=== PATIENT | male | born 1995 | race American Indian/Alaskan Native ===

== ENCOUNTER 2020-04-14 19:00 | Emergency (ER) | payer SELFPAY ==
[2020-04-14 20:10] VITALS: BP 118/54
[2020-04-14] MEDS ORDERED: DIPHtheria,PERTUSSIS(ACELL),TETANUS VACCINE/PF 0.5 ML VIAL IM ONE (20:16)
--- NOTE | 2020-04-14 20:19 | Emergency Department Report ---
- General Chief Complaint: Wound/Laceration Stated Complaint: FINGER LACERATION Time Seen by Provider: 04/14/20 20:16 Source: patient Mode of arrival: Ambulatory Limitations: No Limitations - History of Present Illness Initial Comments: pt is a 25 yo male who presents to the ED with c/o a laceration to the left index finger that occurred at 6 AM this morning. he states he accidentally cut it with a metal seal that goes on a truck at work. states initially was bleeding but has resolved. states he cleaned it with perioxide. he is able to move the finger. he denies any numbness or weakness. he is unsure of his last tetanus immunization. PMHx none. no allergies to meds - Related Data Allergies Allergy/AdvReac Type Severity Reaction Status Date / Time No Known Allergies Allergy Unverified 04/14/20 20:18 ED Review of Systems ROS: Stated complaint: FINGER LACERATION Other details as noted in HPI Comment: All other systems reviewed and negative ED Past Medical Hx - Past Medical History Previous Medical History?: No - Surgical History Past Surgical History?: No ED Physical Exam - General Limitations: No Limitations General appearance: alert, in no apparent distress - Head Head exam: Present: atraumatic, normocephalic - Eye Eye exam: Present: normal appearance - ENT ENT exam: Present: mucous membranes moist - Respiratory Respiratory exam: Absent: respiratory distress, accessory muscle use - Extremities Exam Extremities exam: Present: other (1 cm laceration present to the palmar surface of the distal left index finger, no bleeding, no visualized foreign body, no muscle/tendon involvement, very superificial, FROM of the left wrist, hand, digits, neurovasculalry intact) - Neurological Exam Neurological exam: Present: alert, oriented X3 - Psychiatric Psychiatric exam: Present: normal affect, normal mood - Skin Skin exam: Present: warm, dry ED Course Vital Signs 04/14/20 20:08 Temperature 98.6 F Pulse Rate 84 Respiratory 16 Rate Blood Pressure 118/54 O2 Sat by Pulse 100 Oximetry - Laceration /Wound Repair Left Palm Finger Wound Location: upper extremity Wound Length (cm): 1 Wound's Depth, Shape: superficial Wound Explored: clean Irrigated w/ Saline (ccs): 50 Betadine Prep?: Yes Wound Repaired With: Steri-strips, Dermabond Layer Closure?: No Sterile Dressing Applied?: Yes Progress: Wound irrigated with saline and thoroughly scrubbed with Betadine, no foreign body, no muscle or tendon involvement, multiple layers of Dermabond placed with good skin approximation, Steri-Strips placed, patient tolerated well, no complications, bleeding controlled ED Medical Decision Making - Medical Decision Making pt is a 25 yo male who presents to the ED with c/o a laceration to the left index finger that occurred at 6 AM this morning. he states he accidentally cut it with a metal seal that goes on a truck at work. states initially was bleeding but has resolved. states he cleaned it with perioxide. he is able to move the finger. he denies any numbness or weakness. he is unsure of his last tetanus immunization. PMHx none. no allergies to meds. vitals are normal. on exam: 1 cm laceration present to the palmar surface of the distal left index finger, no bleeding, no visualized foreign body, no muscle/tendon involvement, very superificial, FROM of the left wrist, hand, digits, neurovasculalry intact. Wound is very superficial and only 1 cm, does not need suture repair. Wound irrigated with saline and thoroughly scrubbed with Betadine and repaired per procedure note with Dermabond and Steri-Strips. advised pt Please keep area c lean, dry, covered. Please do not get area wet at all for the next 2 days. Please avoid bending the finger. After 2 days may wash with antibacterial soap and water twice a day and pat dry. No hot tub, no pool, no soaking in water. Showering is fine. Follow-up with your primary care doctor for reexamination. Return to emergency room immediately for any new or worsening symptoms or any signs of infection. Critical care attestation.: If time is entered above; I have spent that time in minutes in the direct care of this critically ill patient, excluding procedure time. ED Disposition Clinical Impression: Laceration of left index finger Qualifiers: Encounter type: initial encounter Damage to nail status: without damage Foreign body presence: without foreign body Qualified Code(s): S61.211A - Laceration without foreign body of left index finger without damage to nail, initial encounter Disposition: TO HOME OR SELFCARE Is pt being admited?: No Does the pt Need Aspirin: No Condition: Stable Instructions: Sutures, [place], or Adhesive Wound Closure Additional Instructions: Please keep area clean, dry, covered. Please do not get area wet at all for the next 2 days. Please avoid bending the finger. After 2 days may wash with antibacterial soap and water twice a day and pat dry. No hot tub, no pool, no soaking in water. Showering is fine. Follow-up with your primary care doctor for reexamination. Return to emergency room immediately for any new or worsening symptoms or any signs of infection. Referrals: MITCHELL ARTEAGA MD [Staff Physician] - 3-5 Days [facility] [Provider Group] - 3-5 Days [facility], [LAB/CONTRACT] - 3-5 Days Time of Disposition: 20:33 Print Language: FRENCH
== END 2020-04-14 20:35 | disposition home or self-care (01) ==
LOC: ED 19:00
DX: S61.211A Laceration without foreign body of left index finger without damage to nail, initial encounter (principal); W45.8XXA Other foreign body or object entering through skin, initial encounter; Y93.89 Activity, other specified; Y92.89 Other specified places as the place of occurrence of the external cause; Y99.0 Civilian activity done for income or pay
CPT/HCPCS: 90471; 90715